=== PATIENT | male | born 1960 | race Caucasian/White ===

== ENCOUNTER → 2017-12-09 | Emergency (ER) | payer OTHER ==
[~2017-12-09] VITALS: Ht 182.9 cm; Wt 96.3 kg
[~2017-12-09] MED LIST: BUPIVAcaine/PF 2.5 mg/ml (0.25%) 30ml vial IJ ONE; DOXY100C2 PO
[2017-12-09 09:52] VITALS: BP 165/105
== END | disposition home or self-care (01) ==
LOC: ER 08:27
DX: S70.261A Insect bite (nonvenomous), right hip, initial encounter (principal); Z60.2 Problems related to living alone; W57.XXXA Bitten or stung by nonvenomous insect and other nonvenomous arthropods, initial encounter; Y93.89 Activity, other specified; Y92.89 Other specified places as the place of occurrence of the external cause; Y99.8 Other external cause status
CPT/HCPCS: 99283; J3490